=== PATIENT | male | born 1930 | race Caucasian/White ===

== ENCOUNTER → 2021-08-22 | Outpatient (CLI) | payer MEDICARE ==
--- NOTE | 2021-08-23 04:21 | MR ---
EXAMINATION TYPE: MR lspine/sacrum wo con DATE OF EXAM: 08/22/2021 COMPARISON: None HISTORY: Lower back and left sciatica pain. Multiplanar multiecho imaging of the lumbar spine and sacrum without contrast. There is a fusion of the L3 and L4 vertebral bodies anteriorly with anterior wedging. 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 There is mild spinal stenosis at L4-5. No lumbar paraspinal mass. No evidence of an acute fracture. Sacroiliac joints are intact. The coccygeal segments have normal alignment. Segments of the sacrum show normal alignment. No fractu re seen. The presacral soft tissues appear intact. No free fluid in the pelvis. IMPRESSION: There is very severe spinal stenosis at L2-3 due to facet arthropathy and the subluxation deformity. No acute bony abnormality. 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 No significant abnormality of the sacrum and coccyx.
== END | disposition home or self-care (01) ==
LOC: RADMRIMAIN 20:17
PROVIDERS: ATTEND Psychiatry & Neurology Neurology
DX: M47.26 Other spondylosis with radiculopathy, lumbar region (principal); M48.061 Spinal stenosis, lumbar region without neurogenic claudication; M99.73 Connective tissue and disc stenosis of intervertebral foramina of lumbar region
CPT/HCPCS: 72148; 72195